=== PATIENT | female | born 1960 | race Caucasian/White ===

== ENCOUNTER → 2017-07-19 | Outpatient (CLI) | payer OTHER | LOC: FIMAGING 09:58 | PROVIDERS: ATTEND Physician Assistant | DX: Z12.31 Encounter for screening mammogram for malignant neoplasm of breast (principal) | CPT/HCPCS: G0202 ==

== ENCOUNTER → 2018-07-22 | Outpatient (CLI) | payer BC, OTHER | LOC: FIMAGING 13:45 | PROVIDERS: ATTEND Nurse Practitioner Adult Health | DX: D25.2 Subserosal leiomyoma of uterus (principal); R93.89 Abnormal findings on diagnostic imaging of other specified body structures; N83.202 Unspecified ovarian cyst, left side ==

== ENCOUNTER → 2018-08-05 | Outpatient (CLI) | payer OTHER | LOC: FIMAGING 14:37 | PROVIDERS: ATTEND Physician Assistant | DX: Z12.31 Encounter for screening mammogram for malignant neoplasm of breast (principal) ==